=== PATIENT | female | born 1945 | race Caucasian/White ===

== ENCOUNTER → 2019-04-30 12:02 | Outpatient (CLI) | payer MEDICARE, SELFPAY ==
[2019-04-30 12:46] LABS: Absolute Lymphocyte Count 1.09 X10^3/uL (0.83-4.51); Absolute Neutrophil Count 11.9 X10^3/uL (2.0-7.7); Basophil# 0.04 X10^3/uL; Basophil% 0.3 % (0-1); Eosinophil# 0.03 X10^3/uL; Eosinophils% 0.2 % (0-5); Hematocrit 41.5 % (37-47); Hemoglobin 13.8 g/dL (12.0-15.0); Lymphocyte # 1.09 X10^3/ul (4.0); Lymphocyte % 7.8 % (19-41); Mean Corp Hgb Conc 33.3 g/dL (32-36); Mean Corpuscular Volume 93.3 fL (81-99); Mean Platelet Vol. 10.8 fl (6.2-12.0); Monocyte% 6.4 % (0-10); NRBC Flagged by Analyzer 0 % (0-5); Neutrophil # 11.85 X10^3/uL (2.7-7.7); Neutrophil % 84.6 % (47-70); Platelet Count 232 K/mm3 (150-450); RBC Distribution Width SD 44.1 fl (35.1-43.9); Red Blood Count 4.45 M/mm3 (4.2-5.4)
[2019-04-30 13:06] LABS: Erythrocyte Sedimentation Rate 73 mm/hr (0-30)
[2019-04-30 13:10] LABS: ALB/GLOB Ratio 0.6 RATIO (0.9-2.4); AST(SGOT) 14 U/L (15-37); Alanine Aminotransfer ALT/SGPT 20 U/L (13-56); Albumin, Serum 3.1 g/dL (3.2-5.0); Alkaline Phosphatase 95 U/L (45-117); Anion Gap 9 (5-15); BUN 18 mg/dL (7-18); BUN/Creat Ratio 14.8 RATIO (10-20); Calcium,Total 9.2 mg/dL (8.5-10.1); Chloride 98 mmol/L (98-107); Creatinine, Serum 1.22 mg/dL (0.55-1.02); EST Glomerular Filtration Rate 46 mL/min (>60); Est Glom Filt Rate - Afr Amer 56 mL/min (>60); Globulin 4.8 g/dL (2.2-4.2); Glucose 226 mg/dL (74-106); Potassium 3.9 mmol/L (3.5-5.1); Protein, Total 7.9 g/dL (6.4-8.2); Sodium Level 133 mmol/L (136-145)
[2019-04-30 13:40] LABS: D-Dimer Quantitative (DVT/PE) 1.52 FEU/ug/m (0.27-0.49)
--- NOTE | 2019-04-30 13:46 | VDLE_ITS ---
Reason For Study: swelling, pain RIGHT LEFT CFV is compressible, spontaneous, phasic, GSV is normal. competent and demonstrates normal CFV is compressible, spontaneous, phasic, augmentation. competent, and demonstrates normal Procedure augmentation. Exam performed in department. FV is compressible, spontaneous, phasic, The exam was diagnostic. competent and demonstrates normal A preliminary report was called and/or faxed augmentation. to Dr. Suazo. POP V is compressible, spontaneous, phasic, competent and demonstrates normal augmentation. T/P Trunk is compressible. PTV is compressible. LT PerV is compressible. Interpretation Summary There is no evidence of left lower extremity deep vein thrombosis. Left great saphenous vein appears patent and compressible segmentally. Patent and compressible right common femoral vein Ordering Physician: Sonal Suazo Performed By: Ernesto Powers RVT
--- NOTE | 2019-04-30 14:05 | RAD_ITS ---
STUDY: X-RAY - LEFT KNEE REASON FOR EXAM: Female, 73 years old. Pain. TECHNIQUE: 4 view(s) of the knee. COMPARISON: None. FINDINGS: There is a total knee prosthesis in place with normal alignment. Otherwise normal visualized distal femur. Normal visualized proximal tibia and fibula. Normal proximal tibiofibular articulation. There is no demonstrated fracture. Postoperative changes with sclerosis along the posterior patella. There is mild to moderate joint effusion. There is mild soft tissue swelling along the infrapatellar region. RAD/Knee 4 or More Views IMPRESSION: Status post total knee replacement surgery with normal anatomic alignment. No acute fracture. Electronically Signed: Sulema Cervantes MD at 2:23 EST , Service support ,
== END ==
PROVIDERS: Family Provider Family Medicine; PCP Family Medicine; Referring Provider Family Medicine; Visit Provider Family Medicine
DX: M79.605 Pain in left leg (principal); L03.116 Cellulitis of left lower limb; R60.9 Edema, unspecified; M25.562 Pain in left knee
CPT/HCPCS: 36415; 73564; 80053; 85025; 85379; 85652; 86140; 93971